=== PATIENT | male | born 1960 | race Caucasian/White ===

== ENCOUNTER 2020-11-11 21:01 | Emergency (ER) | payer MEDICARE, OTHER ==
[2020-11-12 00:37] LABS: HEMOGLOBIN 13.6 gm/dl (14.0-17.5); RED BLOOD COUNT 4.48 M/UL (4.20-5.50)
[2020-11-12 01:20] LABS: BUN/CREATININE RATIO 20 (0-10)
[2020-11-12] MEDS ORDERED: NORVASC5 MG PO (02:57)
== END 2020-11-12 03:05 | disposition home or self-care (01) ==
LOC: ER1 21:01
PROVIDERS: Physician Assistant
DX: S00.93XA Contusion of unspecified part of head, initial encounter (principal); I10 Essential (primary) hypertension; R55 Syncope and collapse; E11.9 Type 2 diabetes mellitus without complications; W19.XXXA Unspecified fall, initial encounter
CPT/HCPCS: 70450; 71045; 80053; 81001; 82550; 82553; 83874; 84484; 85025; 87086; 93005; 96374; 99284

== ENCOUNTER → 2020-11-21 | Outpatient (CLI) | payer MEDICARE, OTHER ==
[~2020-11-21] MED LIST: NORVASC5 MG PO
== END ==
LOC: HEART 5 09:54
DX: R55 Syncope and collapse (principal)

== ENCOUNTER 2021-04-18 12:15 | Emergency (ER) | payer MEDICARE | END 2021-04-18 13:18 | disposition left against medical advice (07) | LOC: ER1 12:15 | DX: Z53.21 Procedure and treatment not carried out due to patient leaving prior to being seen by health care provider (principal) ==